=== PATIENT | female | born 1960 | race Caucasian/White ===

== ENCOUNTER 2018-04-04 20:56 | Emergency (ER) | END 2018-04-04 22:56 | disposition left against medical advice (07) ==

== ENCOUNTER 2018-08-25 14:50 | Emergency (ER) | payer OTHER ==
[~2018-08-25] VITALS: Ht 167.6 cm; Wt 56.8 kg
[~2018-08-25 14:50] MED LIST: BACTDS PO; BEN25 PO; CEPH-443 PO; CLIN300C10 PO; DIVA-48 PO; DIVA-75 PO; DULO60CA6 PO; ELIM TOP; GABA-526 PO; HYDR-3498 PO; IBUP-1542 PO; LORA1TAB PO; QUET200T4 PO
[2018-08-25 15:08] VITALS: Ht 167.6 cm; Wt 56.8 kg
--- NOTE | 2018-08-25 15:11 | ERD ---
ER Documentation Chief Complaint Chief Complaint seizures"; hx of seizures, not taking meds x 1 month. HPI The patient is a 58-year-old female, presenting to the ER because of seizure lasting for a minute while she was lying on the bed. The friend called 911, had similar symptom previously, did not take medication for 1 month, denies headache, fever, chills, neck pain, chest pain, dyspnea, abdominal pain, vomiting, dysuria. She does smoke, denies drinking, history of substance abuse denies SI/HI Past medical history: Seizure, asthma, anxiety, schizophrenia, bipolar Past surgical history: None ROS All systems reviewed and are negative except as per history of present illness. Medications Home Meds Active Scripts Levetiracetam* (Keppra*) 500 Mg Tablet, 500 MG PO BID for 10 Days, TAB Prov:RAHEEM SALCEDO MD 08/25/18 Discontinued Reported Medications Divalproex Sodium* (Depakote ER*) 500 Mg Tabsr, 500 MG PO BID, TAB.SA 05/19/15 Lorazepam* (Lorazepam*) 1 Mg Tablet, 1 MG PO HS PRN for ANXIETY, TAB 05/19/15 Duloxetine Hcl* (Cymbalta*) 60 Mg Capsule.dr, 60 MG PO QHS, CAP 05/19/15 Quetiapine Fumarate* (Seroquel* XR) 200 Mg Tab.sr.24h, 400 MG PO DAILY, TAB.SA 05/19/15 Gabapentin* (Gabapentin*) 600 Mg Tablet, 600 MG PO TID 01/13/13 Discontinued Scripts Cephalexin* (Keflex*) 500 Mg Capsule, 500 MG PO QID for 7 Days, CAP Prov:KELLI LERNER PA-C 06/02/16 Sulfamethoxazole-Trimethoprim* (Bactrim* DS) 800-160 Mg Tab, 1 TAB PO BID for 10 Days, TAB Prov:KELLI LERNER PA-C 06/02/16 Permethrin* (Elimite*) 5% Cr, 1 APPLIC TOP ONCE, #1 TUB Prov:KELLI LERNER PA-C 06/02/16 Diphenhydramine Hcl* (Benadryl*) 25 Mg Cap, 25 MG PO Q6, #30 CAP Prov:BRIDGETTE SMALL 12/25/15 Hydrocodone Bit-Acetaminophen* (Capitola*) 5-325 Mg Tab, 1 TAB PO Q6 PRN for PAIN, #7 TAB Prov:BRIDGETTE SMALL 12/25/15 Hydrocodone Bit-Acetaminophen* (Capitola*) 5-325 Mg Tab, 1 TAB PO Q6 PRN for PAIN, #7 TAB Prov:BRIDGETTE SMALL 12/25/15 Clindamycin Hcl* (Clindamycin Hcl*) 300 Mg Capsule, 300 MG PO TID for 10 Days, CAP Prov:BRIDGETTE SMALL Shimon 12/25/15 Ibuprofen* (Motrin*) 600 Mg Tab, 600 MG PO Q6H PRN for PAIN AND OR ELEVATED TEMP, #30 TAB Prov:LYDIA BEEBE PA-C 09/14/15 Lorazepam* (Lorazepam*) 1 Mg Tablet, 1 MG PO BID, #8 TAB Prov:GRACIELA BOO MD 07/06/15 Divalproex Sodium* (Depakote*) 500 Mg Tablet.dr, 500 MG PO BID, #8 TAB Prov:GRACIELA BOO MD 07/06/15 Allergies Allergies: Coded Allergies: dextromethorphan HBr (Verified Allergy, Severe, 08/25/18) doxylamine (Verified Allergy, Severe, 08/25/18) pseudoephedrine HCl (Verified Allergy, Severe, 08/25/18) ziprasidone (Verified Allergy, Intermediate, 08/25/18) ziprasidone HCl (Verified Allergy, Intermediate, 08/25/18) ziprasidone mesylate (Verified Allergy, Intermediate, 08/25/18) PMhx/Soc History of Surgery: Yes (ABSCESS I&D) Anesthesia Reaction: No Hx Neurological Disorder: Yes (SEIZURES, RIGHT-SIDE NEUROPATHY) Hx Respiratory Disorders: Yes (ASTHMA) Hx Cardiac Disorders: No Hx Psychiatric Problems: Yes (PSYCH MEDS) Hx Miscellaneous Medical Probl: No Hx Alcohol Use: No Hx Substance Use: Yes (HEROIN) Hx Tobacco Use: No Physical Exam Vitals Vital Signs Date Temp Pulse Resp B/P (MAP) Pulse Ox O2 O2 Flow FiO2 Time Delivery Rate 08/25/18 90 16 112/85 98 Room Air 18:04 (94) 08/25/18 96 16 102/79 97 Room Air 17:14 (87) 08/25/18 98.3 86 17 142/80 99 15:08 (100) Physical Exam Const: No acute distress. Head: Atraumatic. Eyes: Normal Conjunctiva. ENT: Normal External Ears, Nose and Mouth. Neck: Full range of motion. No meningismus. Resp: Clear to auscultation bilaterally. Cardio: Regular rate and rhythm. Abd: Soft, non distended, normal bowel sounds, non tender. Skin: No petechiae or rashes. Back: No midline or flank tenderness. Ext: No cyanosis, or edema. Neur: Awake and alert. No focal deficit Psych: Normal Mood and Affect. Result Diagram: 08/25/18 1530 08/25/18 1530 Results 24 hrs Laboratory Tests Test 08/25/18 15:18 08/25/18 15:30 Bedside Glucose 122 mg/dL White Blood Count 4.9 10^3/ul Red Blood Count 4.53 10^6/ul Hemoglobin 12.9 g/dl Hematocrit 38.8 % Mean Corpuscular Volume 85.7 fl Mean Corpuscular Hemoglobin 28.5 pg Mean Corpuscular Hemoglobin Concent 33.2 g/dl Red Cell Distribution Width 13.3 % Platelet Count 175 10^3/UL Mean Platelet Volume 10.0 fl Immature Granulocytes % 0.000 % Neutrophils % 47.7 % Lymphocytes % 42.2 % Monocytes % 7.2 % Eosinophils % 2.1 % Basophils % 0.8 % Nucleated Red Blood Cells % 0.0 /100WBC Immature Granulocytes # 0.000 10^3/ul Neutrophils # 2.3 10^3/ul Lymphocytes # 2.1 10^3/ul Monocytes # 0.4 10^3/ul Eosinophils # 0.1 10^3/ul Basophils # 0.0 10^3/ul Nucleated Red Blood Cells # 0.0 10^3/ul Sodium Level 144 mmol/L Potassium Level 3.8 mmol/L Chloride Level 103 mmol/L Carbon Dioxide Level 28 mmol/L Anion Gap 13 Blood Urea Nitrogen 13 mg/dl Creatinine 0.67 mg/dl Est Glomerular Filtrat Rate mL/min > 60 mL/min Glucose Level 137 mg/dl Calcium Level 9.0 mg/dl Current Medications Medications Dose Sig/Bere Start Time Status Last (Trade) Ordered Route PRN Stop Time Admin Dose Reason Admin 100 ml @ ONCE STAT 08/25/18 DC 08/25/18 Levetiracetam 400 mls/hr IVPB 15: 15:39 08/25/18 15:33 Procedures/MDM MEDICAL MAKING DECISION: The patient is a 58-year-old female, presenting with acute recurrent seizure due to medical noncompliance, was treated with Keppra 1 g IV with good response, is stable for outpatient follow-up The differential diagnoses considered include but are not limited to medical noncompliance, anxiety attack, panic attack, substance abuse Departure Diagnosis: Primary Impression: Recurrent seizures Condition: Good Comments She was discharged with Keppra The patient's blood pressure was elevated (>120/80) but appears stable without evidence of hypertension emergency or urgency. The patient was counseled about the risks of hypertension and urged to pursue outpatient monitoring and therapy within a week with their primary care physician. I discussed the findings with the patient. I advised the patient to follow-up with the primary physician in about 2-3 days, sooner if needed and return if any concern. Disclaimer: Inadvertent spelling and grammatical errors are likely due to EHR/dictation software use and do not reflect on the overall quality of patient care. Also, please note that the electronic time recorded on this note does not necessarily reflect the actual time of the patient encounter. RAHEEM SALCEDO MD Aug 25, 2018 15:11
[2018-08-25] MEDS ORDERED: LEVETIRACETAM 1000 MG (PMX) 100 ML IVPB STA (15:19)
[2018-08-25] MEDS ORDERED: LEVE-5 PO (17:22)
[2018-08-25 18:04] VITALS: BP 112/85; PULSE 90; RESP 16
== END 2018-08-25 18:11 | disposition home or self-care (01) ==
LOC: E/R 14:50
DX: G40.909 Epilepsy, unspecified, not intractable, without status epilepticus (principal); R40.2252 Coma scale, best verbal response, oriented, at arrival to emergency department; R40.2362 Coma scale, best motor response, obeys commands, at arrival to emergency department; R40.2142 Coma scale, eyes open, spontaneous, at arrival to emergency department; J45.909 Unspecified asthma, uncomplicated
CPT/HCPCS: 80048; 82962; 85025; J1953; 36415; 96374